=== PATIENT | female | born 1990 | race American Indian/Alaskan Native ===

== ENCOUNTER 2018-01-25 16:08 | Emergency (ER) | payer SELFPAY ==
[2018-01-25 16:56] VITALS: BP 98/59
== END 2018-01-25 20:45 | disposition left against medical advice (07) ==
LOC: ED 16:08
DX: R42 Dizziness and giddiness (principal); Z53.21 Procedure and treatment not carried out due to patient leaving prior to being seen by health care provider
CPT/HCPCS: 82962

== ENCOUNTER 2021-09-12 08:25 | Emergency (ER) | payer SELFPAY ==
[2021-09-12] MEDS ORDERED: IPRATROPIUM/ALBUTEROL SULFATE 3 ML AMPUL.NEB IH ONE (12:12)
[2021-09-12] MEDS ORDERED: predniSONE 50 MG TAB PO ONE (12:12)
--- NOTE | 2021-09-12 12:12 | Emergency Department Report ---
ED Asthma HPI - General Chief Complaint: Adult Asthma Stated Complaint: ASTHMA Time Seen by Provider: 09/12/21 12:04 Source: patient Mode of arrival: Ambulatory Limitations: No Limitations - History of Present Illness Initial Comments: 30-year-old female with a known history of asthma presents to the ER today with complaints of asthma flareup. Patient states that she has been out of her inhaler for 1 week. She reports cough, and wheezing which seems to be worse in hot environments. Patient reports some mild sneezing but no rhinorrhea, nasal congestion or sore throat. She denies any fever or chills, chest tightness or shortness of breath. She states she is never been admitted for asthma in the past. She is vaccinated for COVID-19. MD Complaint: "asthma attack" -: week(s) (1) - Related Data Previous Rx's Medication Instructions Recorded Last Taken Type Albuterol Mdi (or & Nicu Only) 2 puff IH QID PRN #8.5 gram 09/12/21 Unknown Rx [ProAir HFA Inhaler] Albuterol Sulfate [Albuterol 0.63% 0.63 mg IH QID PRN #90 ml 09/12/21 Unknown Rx NEBS] Cetirizine HCl [ZyrTEC 10mg cap] 10 mg PO DAILY #30 cap 09/12/21 Unknown Rx Montelukast [Singulair] 10 mg PO QPM #30 tablet 09/12/21 Unknown Rx predniSONE [Deltasone] 50 mg PO QDAY #5 tab 09/12/21 Unknown Rx Allergies Allergy/AdvReac Type Severity Reaction Status Date / Time No Known Allergies Allergy Verified 09/12/21 12:18 ED Review of Systems ROS: Stated complaint: ASTHMA Other details as noted in HPI Comment: All other systems reviewed and negative Respiratory: cough, wheezing. denies: shortness of breath, SOB with exertion, SOB at rest Cardiovascular: denies: chest pain, palpitations Gastrointestinal: denies: abdominal pain, nausea, vomiting, diarrhea, constipation, hematemesis, hematochezia Genitourinary: denies: urgency, dysuria, frequency, hematuria, discharge, abnormal menses, dyspareunia Musculoskeletal: denies: back pain, joint swelling, arthralgia Skin: denies: rash, lesions, change in color, change in hair/nails, pruritus Neurological: denies: headache, weakness, numbness, paresthesias, confusion, abnormal gait, vertigo Psychiatric: denies: anxiety, depression, auditory hallucinations, visual hallucinations, homicidal thoughts, suicidal thoughts Hematological/Lymphatic: denies: easy bleeding, easy bruising, swollen glands ED Past Medical Hx - Past Medical History Previous Medical History?: Yes Hx Diabetes: Yes Hx Asthma: Yes - Surgical History Past Surgical History?: Yes Additional Surgical History: tonsilectomy - Social History Smoking Status: Never Smoker Substance Use Type: Alcohol - Medications Home Medications: Home Medications Medication Instructions Recorded Confirmed Last Taken Type Albuterol Mdi (or & Nicu Only) 2 puff IH QID PRN #8.5 gram 09/12/21 Unknown Rx [ProAir HFA Inhaler] Albuterol Sulfate [Albuterol 0.63% 0.63 mg IH QID PRN #90 ml 09/12/21 Unknown Rx NEBS] Cetirizine HCl [ZyrTEC 10mg cap] 10 mg PO DAILY #30 cap 09/12/21 Unknown Rx Montelukast [Singulair] 10 mg PO QPM #30 tablet 09/12/21 Unknown Rx predniSONE [Deltasone] 50 mg PO QDAY #5 tab 09/12/21 Unknown Rx ED Physical Exam - General Limitations: No Limitations General appearance: in no apparent distress - Head Head exam: Present: atraumatic, normocephalic, normal inspection - Neck Neck exam: Present: normal inspection, full ROM. Absent: meningismus - Respiratory Respiratory exam: Present: normal lung sounds bilaterally, wheezes (Left upper lung field). Absent: respiratory distress - Cardiovascular Cardiovascular Exam: Present: regular rate, normal rhythm, normal heart sounds - Neurological Exam Neurological exam: Present: alert, oriented X3, CN II-XII intact, normal gait - Psychiatric Psychiatric exam: Present: normal affect, normal mood - Skin Skin exam: Present: intact ED Course Vital Signs 09/12/21 09/12/21 08:39 12:15 Temperature 98.5 F 98.9 F Pulse Rate 68 77 Respiratory 18 18 Rate Blood Pressure 106/58 Blood Pressure 131/90 [Right] O2 Sat by Pulse 99 97 Oximetry ED Medical Decision Making - Medical Decision Making Pt feeling better after neb tx. repeat lung exam show wheezing much improved. patient currently seating in recliner comfortably, she is not in any respiratory distress, she is not toxic or ill appearing and her VS are stable. Discussed discharge instructions and tx plan with patient. She expressed understanding and agreed with plan. She was stable at time of discharge. Critical care attestation.: If time is entered above; I have spent that time in minutes in the direct care of this critically ill patient, excluding procedure time. ED Disposition Clinical Impression: Asthma Disposition: 01 HOME / SELF CARE / HOMELESS Is pt being admited?: No Does the pt Need Aspirin: No Condition: Stable Instructions: Asthma, Adult, [id number], Asthma (ED) Additional Instructions: I recommend you use your albuterol MDI every 4-6hrs. You can purchase a neb ulizer machine from over the counter and you can use the albuterol nebs at home every 4-6hrs. Take the prednisone, singular and the zyrtec as prescribed. Follow up with PCP listed discharge instructions. Return to ED If worse. Prescriptions: Albuterol Sulfate [Albuterol 0.63% NEBS] 0.63 mg IH QID PRN #90 ml PRN Reason: Wheezing predniSONE [Deltasone] 50 mg PO QDAY #5 tab Albuterol Mdi (or & Nicu Only) [ProAir HFA Inhaler] 2 puff IH QID PRN #8.5 gram PRN Reason: Shortness Of Breath Montelukast [Singulair] 10 mg PO QPM #30 tablet Cetirizine HCl [ZyrTEC 10mg cap] 10 mg PO DAILY #30 cap Referrals: DAVON KARIMI MD [Primary Care Provider] - 3-5 Days Forms: Work/School Release Form(ED) Time of Disposition: 12:51
[2021-09-12 12:17] VITALS: BP 131/90
== END 2021-09-12 13:00 | disposition home or self-care (01) ==
LOC: ED 08:25
DX: J45.909 Unspecified asthma, uncomplicated (principal); E11.9 Type 2 diabetes mellitus without complications
CPT/HCPCS: 94640; 99282; J7512

== ENCOUNTER 2021-12-12 11:18 | Emergency (ER) | payer SELFPAY ==
[2021-12-12 11:49] VITALS: BP 122/67
--- NOTE | 2021-12-12 11:53 | Event Note ---
ED Screening Note ED Screening Note: 31-year-old female history of type 2 diabetes presenting with elevated blood pressure. States her blood pressure has been reading systolic 160s at home. No chest pain no shortness of breath no weakness dizziness or vision changes, no swelling of extremities General: Nontoxic appearing no acute distress Cardiac: Regular rate, normal heart sounds Respiratory: Normal lung sounds bilaterally no use of neck band operator muscles GI/-normal sounds, nontender no guarding Musculoskeletal-normal inspection full range of motion Neuro-alert oriented x4. In the setting of a significantly high volume and record number of patients presenting to the emergency department and the fact that we have a limited space to see patients we have implemented the provider in triage protocol this allows an expedited initial exam of patients that might otherwise have left without being seen or who would wait longer than usual to be seen by provider. I interviewed the patient and performed a limited physical exam. This patient is a pulled from the waiting room to triage room for an initial assessment of adrenal studies and then returned to the waiting room pending results of the studies. The ultimate final evaluation and disposition may be performed by another provider depending on room and provider availability.
[2021-12-12 12:58] LABS: Eosinophils # (Auto) 0.3 K/mm3 (0.0-0.4); Eosinophils % (Auto) 5.3 % (0.0-4.3); Hematocrit 40.7 % (30.3-42.9); Hemoglobin 13.8 gm/dl (10.1-14.3); Lymphocytes % (Auto) 41.5 % (13.4-35.0); Mean Corpuscular HGB Conc 34 % (30-34); Mean Corpuscular Volume 96 fl (79-97); Monocytes # (Auto) 0.3 K/mm3 (0.0-0.8); Platelet Count 314 K/mm3 (140-440); Red Blood Count 4.26 M/mm3 (3.65-5.03)
[2021-12-12 13:00] LABS: Alanine Aminotransferase 15 units/L (7-56); Albumin 4.4 g/dL (3.9-5); Blood Urea Nitrogen 8 mg/dL (7-17); Calcium 9.1 mg/dL (8.4-10.2); Hemolysis Index 7
[2021-12-12 13:06] LABS: BUN/Creatinine Ratio 13
--- NOTE | 2021-12-12 15:21 | Emergency Department Report ---
ED General Adult HPI - General Chief complaint: High BP Stated complaint: HIGH BLOOD PRESSURE Time Seen by Provider: 12/12/21 14:55 Source: patient Mode of arrival: Ambulatory Limitations: No Limitations - History of Present Illness Initial comments: 31-year-old black female with a past medical history of diabetes and PCOS presents to the emergency department for evaluation of elevated blood pressure. She states that she has a home blood pressure monitor, and she has been taking her blood pressure for the last several days, and it has been elevated. She states that its been between 140 and 160 systolic with a diastolic number between 90 and 100. She states that she does not take any medication at home for hypertension. She denies chest pain, shortness of breath, dizziness, diaphoresis, abdominal pain, nausea, vomiting, and fever. MD Complaint: Elevated blood pressure reading -: Gradual, days(s) (2-3) Severity scale (0 -10): 0 Associated Symptoms: denies: confusion, chest pain, cough, diaphoresis, fever/chills, headaches, loss of appetite, malaise, nausea/vomiting, rash, seizure, shortness of breath, syncope, weakness Treatments Prior to Arrival: none - Related Data Previous Rx's Medication Instructions Recorded Last Taken Type Albuterol Mdi (or & Nicu Only) 2 puff IH QID PRN #8.5 gram 09/12/21 Unknown Rx [ProAir HFA Inhaler] Albuterol Sulfate [Albuterol 0.63% 0.63 mg IH QID PRN #90 ml 09/12/21 Unknown Rx NEBS] Cetirizine HCl [ZyrTEC 10mg cap] 10 mg PO DAILY #30 cap 09/12/21 Unknown Rx Montelukast [Singulair] 10 mg PO QPM #30 tablet 09/12/21 Unknown Rx predniSONE [Deltasone] 50 mg PO QDAY #5 tab 09/12/21 Unknown Rx Allergies Allergy/AdvReac Type Severity Reaction Status Date / Time No Known Allergies Allergy Verified 09/12/21 12:18 ED Review of Systems ROS: Stated complaint: HIGH BLOOD PRESSURE Other details as noted in HPI Comment: All other systems reviewed and negative Constitutional: denies: chills, fever Eyes: denies: vision change Respiratory: denies: shortness of breath Cardiovascular: denies: chest pain, palpitations Gastrointestinal: denies: abdominal pain, nausea, vomiting Genitourinary: denies: urgency, dysuria Musculoskeletal: denies: back pain Skin: denies: rash, lesions Neurological: denies: headache, weakness ED Past Medical Hx - Past Medical History Hx Diabetes: Yes Hx Asthma: Yes - Surgical History Additional Surgical History: tonsilectomy - Social History Smoking Status: Never Smoker - Medications Home Medications: Home Medications Medication Instructions Recorded Confirmed Last Taken Type Albuterol Mdi (or & Nicu Only) 2 puff IH QID PRN #8.5 gram 09/12/21 Unknown Rx [ProAir HFA Inhaler] Albuterol Sulfate [Albuterol 0.63% 0.63 mg IH QID PRN #90 ml 09/12/21 Unknown Rx NEBS] Cetirizine HCl [ZyrTEC 10mg cap] 10 mg PO DAILY #30 cap 09/12/21 Unknown Rx Montelukast [Singulair] 10 mg PO QPM #30 tablet 09/12/21 Unknown Rx predniSONE [Deltasone] 50 mg PO QDAY #5 tab 09/12/21 Unknown Rx ED Physical Exam - General Limitations: No Limitations General appearance: alert, in no apparent distress - Head Head exam: Present: atraumatic, normocephalic - Eye Eye exam: Present: normal appearance. Absent: conjunctival injection - Neck Neck exam: Present: normal inspection, full ROM. Absent: tenderness, lymphadenopathy - Respiratory Respiratory exam: Present: normal lung sounds bilaterally. Absent: respiratory distress, wheezes, rales, rhonchi, stridor, chest wall tenderness - Cardiovascular Cardiovascular Exam: Present: regular rate, normal heart sounds - GI/Abdominal GI/Abdominal exam: Present: soft, normal bowel sounds. Absent: distended, tenderness, guarding, rebound, rigid - Extremities Exam Extremities exam: Present: normal inspection, full ROM, normal capillary refill. Absent: pedal edema, joint swelling, calf tenderness - Back Exam Back exam: Present: normal inspection. Absent: CVA tenderness (R), CVA tenderness (L) - Neurological Exam Neurological exam: Present: alert, oriented X3, CN II-XII intact, normal gait, reflexes normal. Absent: motor sensory deficit - Psychiatric Psychiatric exam: Present: normal affect, normal mood - Skin Skin exam: Present: warm, dry, intact, normal color ED Course Vital Signs 12/12/21 11:46 Temperature 98.5 F Pulse Rate 78 Respiratory 18 Rate Blood Pressure 122/67 O2 Sat by Pulse 97 Oximetry ED Medical Decision Making - Lab Data Result diagrams: 12/12/21 11:57 12/12/21 11:57 - Medical Decision Making 31-year-old black female with a past medical history of diabetes and PCOS p resents to the emergency department for evaluation of elevated blood pressure. She states that she has a home blood pressure monitor, and she has been taking her blood pressure for the last several days, and it has been elevated. She states that its been between 140 and 160 systolic with a diastolic number between 90 and 100. She states that she does not take any medication at home for hypertension. She denies chest pain, shortness of breath, dizziness, diaphoresis, abdominal pain, nausea, vomiting, and fever. Physical exam unremarkable. Labs without any gross abnormalities noted. Blood pressure within normal limits while in the emergency department. Patient advised to monitor and record blood pressure readings at home and follow-up with her primary care provider for further evaluation, management, and decision if she needs to be on antihypertensive medications. She is advised to return to the emergency department if she develops chest pain, shortness of breath, or any other concerning symptoms. She verbalizes understanding of and agreement with plan of care. Critical care attestation.: If time is entered above; I have spent that time in minutes in the direct care of this critically ill patient, excluding procedure time. ED Disposition Clinical Impression: Elevated blood pressure reading without diagnosis of hypertension Disposition: 01 HOME / SELF CARE / HOMELESS Is pt being admited?: No Does the pt Need Aspirin: No Condition: Stable Instructions: How to Take Your Blood Pressure, [id number], Form - Blood Pressure Record Sheet, Preventing Hypertension Additional Instructions: Monitor and record blood pressure readings and follow-up with your primary care provider for further evaluation and management. Return to the emergency department as needed. Referrals: DAVON KARIMI MD [Staff Physician] - 3-5 Days Forms: Work/School Release Form(ED) Time of Disposition: 15:21
== END 2021-12-12 15:30 | disposition home or self-care (01) ==
LOC: ED 11:18
DX: I10 Essential (primary) hypertension (principal); E11.9 Type 2 diabetes mellitus without complications; J45.909 Unspecified asthma, uncomplicated
CPT/HCPCS: 36415; 80053; 84703; 85025; 99283